=== PATIENT | male | born 1930 | race Caucasian/White ===

== ENCOUNTER 2018-02-04 20:45 | Inpatient (IN) | payer OTHER, MEDICARE ==
[~2018-02-04] VITALS: Ht 175.2 cm; Wt 77.1 kg
--- NOTE | ~2018-02-04 | EKG ---
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
--- NOTE | ~2018-02-04 | PR ---
[place], [place] PROGRESS NOTE NAME: SINA TAPIA UNIT #: [id number] ROOM: 316 DOCTOR: ALEX ANAYA MD BIRTHDATE: [birth year] DOS: 02/09/2018 INTERVAL NOTE CHIEF COMPLAINT: "I would like some coffee, please." SUMMARY OF THE VISIT: The patient was interviewed as he was resting quietly in a Katie chair at the back end of the dining area. As I approached, he awoke easily and engaged in conversation; in fact, this was the first significant conversation I have had with him this week. He actually made eye contact and answered questions appropriately. He said please and thank you and did request some hot black coffee to drink. Otherwise, he voiced no other complaints and stated he was happy. Nurses report that he does seem to have some behaviors in the evening, but overall there does seem to be a trend in improvement. MENTAL STATUS: He remains alert and oriented to person, possibly place, not to time. Mood does seem to be trending towards euthymia. Affect is more appropriate. There is no gem, hypomania or gross psychosis noted. Short-term memory continues to be problematic. PLAN: I will maximize out the dose of the Exelon patch, bringing the Exelon patch from 9.5-13.3 mg daily, maintaining the Namenda and the Depakote to improve mood lability. We will engage in individual and li milieu activity, returning then to the least restrictive environment when psychiatrically stable. ALEX ANAYA MD CM:PNTRANS [id number] ALEX ANAYA MD 02/10/18 0304 interface
--- NOTE | ~2018-02-04 | EKG ---
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
--- NOTE | ~2018-02-04 | DS ---
[place], [place] DISCHARGE SUMMARY [id number] UNIT #: [id number] ROOM: 316 DOCTOR: ALEX ANAYA MD BIRTHDATE: [birth year] DOS: 02/10/2018 CHIEF COMPLAINT: "I'm doing the best I can for an old man" HISTORY OF PRESENT ILLNESS: This is an 87-year-old white male who is admitted to the [facility]al [facility] Care Unit of [facility] from [facility]. The patient has been very sexually inappropriate there and has been openly masturbating. He has been yelling at staff when he is redirected, he has become both verbally and physically aggressive. He has been threatening staff and has been very inappropriate with both female staff and peers. He has been spitting on the floor and has put himself and others at substantial risk of harm. SUMMARY OF HOSPITAL COURSE: The patient was admitted to the unit where he was started on Exelon patch 4.6 mg a day and Namenda which was gradually increased to 10 mg b.i.d. The Exelon was increased from 4.6 to 9.5 and subsequently stabilized at 13.3 mg a day. Depakote was added to decrease his impulsivity and mood lability. The dose was increased from 1000 to 1500 mg a day given as 500 mg 3 times a day dose. His last valproic acid level prior to being discharged to medical floor was low therapeutic at 57.1. The patient had been on Celexa, was switched to Remeron, but then was re-switched back to the Celexa to decrease libido. However, prior to being psychiatrically stable, the patient did exhibit some significant medical issues in the hospitalist felt that an inpatient medical hospitalization was necessary to stabilize him and prevent further medical decompensation. He was discharged then to the medical floor on February 10. MENTAL STATUS: At the time of discharge, he was alert and oriented to self, unclear place, not to time. Mood was trending gradually toward improvement and there was much less acting out physically and sexually. He was much more redirectable. There was no hypomania or gem. There are no gross psychotic symptoms. Short term memory continued to be very problematic. DIAGNOSES: Major depression, recurrent and intermittent explosive disorder as well as Alzheimer's dementia. DISPOSITION: The patient was discharged to the medical floor at [facility] for further medical intervention. [place], [place] DISCHARGE SUMMARY NAME: SINA TAPIA UNIT #: [id number] ROOM: [facility] DOCTOR: ALEX ANAYA MD BIRTHDATE: [birth year] ALEX ANAYA MD CM:URI [id number] ALEX ANAYA MD 03/02/18 1029 interface
--- NOTE | ~2018-02-04 | PR ---
[place], [place] PROGRESS NOTE NAME: SINA TAPIA UNIT #: [id number] ROOM: 317 DOCTOR: ALEX ANAYA MD BIRTHDATE: [birth year] DOS: 02/07/2018 INTERVAL NOTE CHIEF COMPLAINT: The patient was somnolent and did not respond." SUMMARY OF THE VISIT: The patient was attempted to be interviewed as he was reclining in a Katie chair in the dining area. I had made multiple attempts to call out his name and put my hand gently on his shoulder, but to no avail, the patient did not awake. Nurses report he continues to exhibit significant mood lability and makes many sexually inappropriate comments and advances at the staff. Attempts to redirect have been of limited success. MENTAL STATUS: Limited due to his overall level of somnolence. PLAN: I will go ahead and discontinue Remeron and I will restart him back on Celexa 20 mg a day. I will begin to taper upward the doses of the Namenda and Exelon hoping that this will increase the effectiveness of the Celexa to decrease his libido and decrease his impulsivity. I will bring Namenda from 5 mg a day to 5 mg twice a day while simultaneously increasing Exelon patch from 4.6 mg daily to 9.5 mg a day. I will check a valproic acid level in the a.m. to ensure that it is therapeutic. I will target a dose level between 60 and 80. We will engage in individual and li milieu activity, returning then to the least restrictive environment when psychiatrically stable. ALEX ANAYA MD CM:PNTRANS [id number] ALEX ANAYA MD 02/07/18 0956 interface
--- NOTE | ~2018-02-04 | PR ---
[place], [place] PROGRESS NOTE NAME: SINA TAPIA UNIT #: [id number] ROOM: 316 DOCTOR: ALEX ANAYA MD BIRTHDATE: [birth year] DOS: 02/08/2018 INTERVAL NOTE CHIEF COMPLAINT: The patient was overly somnolent and nonverbal. SUMMARY OF THE VISIT: The patient was once again attempted to be interviewed, but he was very sedate. Upon approach, he was resting quietly in bed. Attempts to engage him were met with him still being sedate. Nurses report similar behavior and that he was sedate yesterday morning by early afternoon, he began to awake as afternoon progressed into evening, he became extremely agitated and both verbally and physically combative. This necessitated him requiring 2 p.r.n. interventions, the last of which did seem to work and allowed him to sleep. Unfortunately, it has led to him being somnolence in the morning. MENTAL STATUS: My mental status is limited due to the severity of the patient's somnolence. PLAN: I will maximize out the dose of Namenda, bringing it up to its maximum dose of 10 mg twice daily. His valproic acid level is minimally therapeutic at 57.1, so I will increase the dose from 1000 mg total in a day to 1500 mg in a day given as 500 mg 3 times daily. If this does not impact positively on his behavior, I will look at utilizing a medication given just prior to his behavior to see if we can get ahead of it. We will continue to attempt to engage him in individual and li milieu activity with the ultimate plan to return to the least restrictive environment when psychiatrically stable. ALEX ANAYA MD CM:PNTRANS [id number] ALEX ANAYA MD 02/08/18 1504 interface
[2018-02-04 20:46] VITALS: BP 165/80
[2018-02-04] MEDS ORDERED: DEPAKOTE500 MG PO (21:11)
[2018-02-04] MEDS ORDERED: DEPAKOTE125 MG PO (21:11)
[2018-02-04] MEDS ORDERED: TOPROL XL50 M1 PO (21:11)
[2018-02-04] MEDS ORDERED: RISPERDAL1 M1 PO (21:12)
[2018-02-04] MEDS ORDERED: RISPERDAL0.5 MG PO (21:12)
[2018-02-04] MEDS ORDERED: MULTIVITAMINS1 EAC5 PO (21:12)
[2018-02-04] MEDS ORDERED: METFORMIN ER500 MG PO (21:13)
[2018-02-04] MEDS ORDERED: SINEMET 25-1001 EACH PO (21:13)
[2018-02-04] MEDS ORDERED: NATURE'S BLEND100 M2 PO (21:13)
[2018-02-04] MEDS ORDERED: TYLENOL325 M1 PO (21:14)
[2018-02-04] MEDS ORDERED: ATIVAN2 MG/1 ML IM (21:15)
[2018-02-04] MEDS ORDERED: BISACODYL10 MG R (21:16)
[2018-02-04] MEDS ORDERED: ATIVAN0.5 MG PO (21:16)
[2018-02-04] MEDS ORDERED: MILK OF MA400 MG/5 M PO (21:17)
[2018-02-04 21:18] LABS: BASO # 0.1 10*3/uL (0.0-0.1); BASO % 0.7 % (0.0-1.0); EOS # 0.8 10*3/uL (0.0-0.4); HEMATOCRIT 41.4 % (42.0-52.0); HEMOGLOBIN 13.2 g/dl (14.0-18.0); LYMPH # 1.6 10*3/uL (1.3-4.4); LYMPH % 21.8 % (27.0-41.0); MEAN CELL VOLUME 88.7 fl (80.0-94.0); MEAN CORPUSCULAR HGB 28.3 pg (27.0-31.0); MEAN CORPUSCULAR HGB CONC 31.9 g/dl (33.0-37.0); MEAN PLATELET VOLUME 10.1 fl (9.6-12.3); MONO # 0.6 10*3/uL (0.1-1.0); MONO % 8.7 % (3.0-9.0); NEUT # 4.2 10*3/uL (2.3-7.9); NEUT % 57.1 % (47.0-73.0); PLATELET COUNT AUTOMATED 242 10*3/uL (130-400); RED BLOOD COUNT 4.67 10*6/uL (4.50-5.90); RED CELL DISTRI WIDTH 14.4 % (0-14.5); WHITE BLOOD COUNT 7.3 10*3/uL (4.8-10.8)
[2018-02-04] MEDS ORDERED: CITALOPRAM20 MG PO (21:18)
[2018-02-04 21:33] LABS: ALBUMIN 2.8 gm/dl (3.1-4.5); ALKALINE PHOSPHATASE 120 U/L (45-117); BUN 24 mg/dl (7-24); CHLORIDE 98 mmol/L (98-107); CREATININE 1.31 mg/dL (0.70-1.30); SGOT/AST 12 IU/L (3-35); SODIUM 136 mmol/L (136-145); TOTAL PROTEIN 7.2 gm/dL (6.4-8.2)
[2018-02-04 21:35] LABS: BILIRUBIN NEGATIVE (NEGATIVE); BLOOD NEGATIVE (NEGATIVE); CLARITY SL CLOUDY (CLEAR); COLOR YELLOW (YELLOW); GLUCOSE NEGATIVE (NEGATIVE); KETONE NEGATIVE (NEGATIVE); LEUKO ESTERASE 1+ (NEGATIVE); NITRITE POSITIVE (NEGATIVE); SPECIFIC GRAVITY 1.015 (1.005-1.030); UROBILINOGEN 0.2 E.U./dl (0.2-1.0)
[2018-02-04 21:37] LABS: ACETAMINOPHEN (TYLENOL) < 5.0 ug/ml (10-30); ETHYL ALCOHOL < 3.0 mg/dl (<3); SGPT/ALT < 6 U/L (12-78)
[2018-02-04 21:44] LABS: BACTERIA 3+; WBC TNTC wbc/hpf (0-5)
[2018-02-04 21:48] LABS: URINE BARBITURATES < 200 (200ng/ml); URINE BENZODIAZEPINES < 200 (200ng/ml); URINE CANNABINOIDS (THC) < 50 (50ng/ml); URINE COCAINE < 300 (300ng/ml); URINE METHADONE < 300 (300ng/ml); URINE OPIATES < 300 (300ng/ml)
[2018-02-04 21:54] LABS: URINE AMPHETAMINES < 1000 (1000ng/ml)
[2018-02-04 21:55] LABS: URINE PHENCYCLIDINE < 25 (25ng/ml)
[2018-02-04 22:11] VITALS: BP 130/87
[2018-02-05 00:10] VITALS: BP 129/60
[2018-02-05 07:09] LABS: VALPROIC ACID (DEPAKENE) 59.3 ug/ml (50-100)
[2018-02-05 07:33] VITALS: BP 130/68
[2018-02-05 08:07] LABS: VITAMIN D, 25-HYDROXY 42.1 ng/mL (30-100)
[2018-02-05 19:53] VITALS: BP 184/116
[2018-02-05 22:40] VITALS: BP 110/88
[2018-02-06 07:26] VITALS: BP 134/73
[2018-02-06 19:23] VITALS: BP 163/89
[2018-02-07 07:39] VITALS: BP 109/52
[2018-02-07 19:46] VITALS: BP 155/80
[2018-02-08 08:07] VITALS: BP 132/78
[2018-02-08 18:35] VITALS: BP 145/60
[2018-02-08 18:59] LABS: BASO # 0.1 10*3/uL (0.0-0.1); BASO % 1.1 % (0.0-1.0); EOS # 0.5 10*3/uL (0.0-0.4); EOS % 8.8 % (1.0-4.0); HEMATOCRIT 41.7 % (42.0-52.0); HEMOGLOBIN 13.2 g/dl (14.0-18.0); LYMPH # 1.5 10*3/uL (1.3-4.4); LYMPH % 26.9 % (27.0-41.0); MEAN CELL VOLUME 89.5 fl (80.0-94.0); MEAN CORPUSCULAR HGB 28.3 pg (27.0-31.0); MEAN CORPUSCULAR HGB CONC 31.7 g/dl (33.0-37.0); MEAN PLATELET VOLUME 10.8 fl (9.6-12.3); MONO # 0.7 10*3/uL (0.1-1.0); MONO % 11.7 % (3.0-9.0); NEUT # 2.9 10*3/uL (2.3-7.9); NEUT % 50.8 % (47.0-73.0); PLATELET COUNT AUTOMATED 260 10*3/uL (130-400); RED BLOOD COUNT 4.66 10*6/uL (4.50-5.90); RED CELL DISTRI WIDTH 14.6 % (0-14.5); WHITE BLOOD COUNT 5.7 10*3/uL (4.8-10.8)
[2018-02-08 19:10] LABS: ALBUMIN 2.7 gm/dl (3.1-4.5); CREATININE 1.47 mg/dL (0.70-1.30); POTASSIUM 4.6 mmol/L (3.5-5.1); TOTAL PROTEIN 6.8 gm/dL (6.4-8.2)
[2018-02-08 19:42] VITALS: BP 145/60
[2018-02-09 07:48] VITALS: BP 144/87
[2018-02-09 19:20] VITALS: BP 127/62
[2018-02-10 07:20] VITALS: BP 108/69
[2018-02-10 08:27] LABS: ABG HCO3 29.1 mmol/l (22-26); ABG O2 SATURATION 99.3 % (95-97); ARTERIAL BLOOD GAS PCO2 47.5 mmHg (35-45); ARTERIAL BLOOD GAS PH 7.402 (7.35-7.45)
[2018-02-10 08:31] LABS: BASO # 0.1 10*3/uL (0.0-0.1); BASO % 0.7 % (0.0-1.0); EOS # 0.5 10*3/uL (0.0-0.4); EOS % 6.6 % (1.0-4.0); HEMATOCRIT 38.7 % (42.0-52.0); HEMOGLOBIN 12.2 g/dl (14.0-18.0); LYMPH # 2.1 10*3/uL (1.3-4.4); LYMPH % 29.1 % (27.0-41.0); MEAN CELL VOLUME 89.6 fl (80.0-94.0); MEAN CORPUSCULAR HGB 28.2 pg (27.0-31.0); MEAN CORPUSCULAR HGB CONC 31.5 g/dl (33.0-37.0); MEAN PLATELET VOLUME 10.5 fl (9.6-12.3); MONO # 0.8 10*3/uL (0.1-1.0); MONO % 11.2 % (3.0-9.0); NEUT # 3.7 10*3/uL (2.3-7.9); NEUT % 51.6 % (47.0-73.0); PLATELET COUNT AUTOMATED 229 10*3/uL (130-400); RED BLOOD COUNT 4.32 10*6/uL (4.50-5.90); RED CELL DISTRI WIDTH 14.7 % (0-14.5); WHITE BLOOD COUNT 7.1 10*3/uL (4.8-10.8)
[2018-02-10] MEDS ORDERED: DEPAKOTE SPRIN125 MG PO (08:37)
[2018-02-10] MEDS ORDERED: EXELON13.3 MG/21 TD (08:38)
[2018-02-10] MEDS ORDERED: NAMENDA10 MG PO (08:38)
[2018-02-10 08:47] LABS: ALBUMIN 2.6 gm/dl (3.1-4.5); CREATININE 1.62 mg/dL (0.70-1.30); POTASSIUM 4.6 mmol/L (3.5-5.1); TOTAL PROTEIN 6.5 gm/dL (6.4-8.2)
[2018-02-24] MEDS ORDERED: MEMANTINE HCL10 MG PO (08:19)
[2018-02-24] MEDS ORDERED: QUETIAPINE FUMA25 MG PO (08:19)
[2018-02-24] MEDS ORDERED: EXELON13.3 MG/21 T (08:19)
[2018-02-24] MEDS ORDERED: CITALOPRAM20 MG PO (08:19)
[2018-02-24] MEDS ORDERED: DIVALPROEX SOD125 M1 PO (08:19)
== END 2018-02-10 08:50 | disposition short-term general hospital (02) | DRG 885 ==
LOC: ED 20:45 → 3N 23:02
PROVIDERS: Emergency Medicine; Internal Medicine; Registered Nurse; Student in an Organized Health Care Education/Training Program
DX: F23 Brief psychotic disorder (principal); N17.0 Acute kidney failure with tubular necrosis; G93.41 Metabolic encephalopathy; N39.0 Urinary tract infection, site not specified; E44.0 Moderate protein-calorie malnutrition; F02.81 Dementia in other diseases classified elsewhere, unspecified severity, with behavioral disturbance; I31.8 Other specified diseases of pericardium; G20 Parkinson's disease; D64.9 Anemia, unspecified; F32.9 Major depressive disorder, single episode, unspecified; R74.8 Abnormal levels of other serum enzymes; I10 Essential (primary) hypertension; E11.65 Type 2 diabetes mellitus with hyperglycemia; I48.91 Unspecified atrial fibrillation; F41.9 Anxiety disorder, unspecified; Z86.73 Personal history of transient ischemic attack (TIA), and cerebral infarction without residual deficits; Z79.899 Other long term (current) drug therapy; Z68.26 Body mass index [BMI] 26.0-26.9, adult